=== PATIENT | female | born 1970 | race Caucasian/White ===

== ENCOUNTER → 2016-11-07 | Outpatient (CLI) | payer BC ==
[2016-11-07 13:27] LABS: Basophils # (A) 0.1 k/uL (0-0.2); Basophils % (A) 1 %; CH 30.5; CHCM 32.3; Eosinophils # (A) 0.1 k/uL (0-0.7); Eosinophils % (A) 1 %; HCT 38.8 % (34.0-46.0); HDW 2.61; HGB 12.6 gm/dL (11.4-16.0); Luc # (Auto) 0.13; Luc % (Auto) 2; Lymphocytes # (A) 2.2 k/uL (1.0-4.8); Lymphocytes % (A) 27 %; MCH 30.9 pg (25.0-35.0); MCHC 32.5 g/dL (31.0-37.0); MCV 95.1 fL (80.0-100.0); Mean Platelet Volume 8.1; Monocytes # (A) 0.4 k/uL (0-1.0); Monocytes % (A) 5 %; Neutrophils # (A) 5.2 k/uL (1.3-7.7); Neutrophils % (A) 65 %; RBC 4.08 m/uL (3.80-5.40); RDW 13.9 % (11.5-15.5); WBC (Perox) 8.76
[2016-11-07 13:45] LABS: ALT 30 U/L (9-52); AST 19 U/L (14-36); Alkaline Phosphatase 115 U/L (38-126); Anion Gap 13 mmol/L; Blood Urea Nitrogen 20 mg/dL (7-17); Calcium 9.6 mg/dL (8.4-10.2); Carbon Dioxide 21 mmol/L (22-30); Chloride 105 mmol/L (98-107); Glucose 89 mg/dL (74-99); Non-African American GFR(MDRD) >60 (>60 ml/min/1.73 sqM); Potassium 4.2 mmol/L (3.5-5.1); Sodium 139 mmol/L (137-145); Total Bilirubin 0.4 mg/dL (0.2-1.3); Total Protein 7.5 g/dL (6.3-8.2)
== END | disposition home or self-care (01) ==
LOC: LABWHC1 12:44
PROVIDERS: ATTEND Psychiatry & Neurology Neurology
DX: T42.8X5D Adverse effect of antiparkinsonism drugs and other central muscle-tone depressants, subsequent encounter (principal)
CPT/HCPCS: 36415; 80053; 85025

== ENCOUNTER → 2017-01-25 | Outpatient (CLI) | payer BC ==
--- NOTE | 2017-01-25 11:19 | PN ---
DATE OF SERVICE: 01/25/2017 This is a 46-year-old lady who has been followed in the sleep center for treatment of severe obstructive sleep apnea-hypopnea syndrome. Patient continued to use her CPAP equipment without any problems. I checked her CPAP unit. Usage is 100% more than 4 hours per night. No leak from the mask. Apnea-hypopnea index is 0.7, CPAP 10 cm of water. No snoring with the machine. No sleepiness during the day. [place] Sleepiness Scale is 4. MEDICATIONS: Neurontin, Zestril, Topamax, Flexeril, Celexa, Xanax, ( ). During physical exam, the patient in no distress. VITAL SIGNS: BP 122/74, HR 94, RR 16. Height 5 feet 4-1/2 inches. Weight 299. Patient lost about 11 pounds since the previous visit and about 28 pounds sinus 2-year-ago visit. BMI 50.5. Neck 16-14. Temperature 97.7, oxygen saturation at room air 97%. HEENT: PERRLA, EOMI, Evaluation of the oropharynx showed moderately low position of soft palate. NECK: Supple. No JVD, Thyroid is not palpable. LUNGS: Clear to percussion and to auscultation. Good air exchange. No wheezing or rhonchi. HEART: S1, S2 regular. No murmurs, gallops, or rubs. ABDOMEN: Obese. PHARMACEUTICAL SALES REPRESENTATIVE: Awake, alert, and oriented x3. Cranial nerves 2 to 7 intact. There is no fasciculation or atrophy noted. No focal deficits observed. IMPRESSION: 1. Severe obstructive sleep apnea-hypopnea syndrome on full control with CPAP at 10 cm of water. Patient demonstrated 100% compliance with treatment benefiting with treatment. 2. Obesity. 3. Status post bilateral knee surgery. 4. Hypertension. 5. History of panic attacks. 6. History of seizures many years ago. PLAN: 1. Prescription for all necessary CPAP supplies. 2. Continue losing weight. 3. Continue to use CPAP equipment every night for the whole night. 4. Sleep hygiene with regular time in bed for at least 8 hours. 5. Follow-up visit in one year. Thank you very much for allowing me to participate in the management of your patient. Sincerely, Ace Jenkins MD, PhD, FAASM Diplomat of [place] [employer], Sleep Medicine Board by [place] [employer] [place] [employer] Greeter [employer] [facility] [place]
== END | disposition home or self-care (01) ==
LOC: SLEEP 10:00
PROVIDERS: ATTEND Internal Medicine
DX: G47.33 Obstructive sleep apnea (adult) (pediatric) (principal); E66.9 Obesity, unspecified; Z68.43 Body mass index [BMI] 50.0-59.9, adult; I10 Essential (primary) hypertension; F41.0 Panic disorder [episodic paroxysmal anxiety]; R56.9 Unspecified convulsions; Z79.899 Other long term (current) drug therapy

== ENCOUNTER → 2017-01-25 | Outpatient (CLI) | payer BC ==
--- NOTE | 2017-01-29 08:18 | MM ---
Reason for exam: screening (asymptomatic). Last mammogram was performed 1 year and 2 months ago. History: Family history of breast cancer in maternal aunt. Physical Findings: A clinical breast exam by your physician is recommended on an annual basis and results should be correlated with mammographic findings. MG Screening Mammo w CAD Bilateral CC and MLO view(s) were taken. XCCL view(s) were taken of the right breast. Prior study comparison: December 11, 2015, bilateral MG screening mammo w CAD. There are scattered fibroglandular densities. No significant changes when compared with prior studies. ASSESSMENT: Benign, BI-RAD 2 RECOMMENDATION: Routine screening mammogram of both breasts in 1 year.
== END | disposition home or self-care (01) ==
LOC: RADMAMWWP 12:38
PROVIDERS: ATTEND Family Medicine
DX: Z12.31 Encounter for screening mammogram for malignant neoplasm of breast (principal)

== ENCOUNTER → 2017-11-05 | Outpatient (CLI) | payer OTHER ==
[2017-11-08 10:43] LABS: Topiramate 3.3 ug/mL (2.0-20.0)
== END | disposition home or self-care (01) ==
LOC: LABWHC1 07:11
PROVIDERS: ATTEND Psychiatry & Neurology Neurology
DX: G40.009 Localization-related (focal) (partial) idiopathic epilepsy and epileptic syndromes with seizures of localized onset, not intractable, without status epilepticus (principal)
CPT/HCPCS: 36415; 80171; 80201

== ENCOUNTER → 2018-01-31 | Outpatient (CLI) | payer OTHER ==
--- NOTE | 2018-01-31 15:01 | SFUN ---
SLEEP CENTER FOLLOW UP NOTE DATE OF SERVICE: 01/31/2018 A 47-year-old lady who has been followed in the Sleep Center for treatment of obstructive sleep apnea-hypopnea syndrome in severe range. Patient continued to use her CPAP equipment every night for the whole night without problems. No snoring with the machine. She irregularly getting her CPAP supplies. I checked her CPAP unit, usage is 100% of the time more than 4 hours. Average usage is 6.36 hours. Apnea-hypopnea index only 1.2 per hour, which is perfect. No leak at all. CPAP pressure is 10 cm of water. [place] Sleepiness Scale today is 6. MEDICATIONS: Neurontin, Zestril, Topamax, Xanax, , Celexa, Prilosec, Percocet, Nitrostat, Bactroban. Blood pressure 127/76, HR 78, RR 16, height 5, 4, weight 312, BMI 53.5. Patient increased her weight comparing to the previous visit of 13 pounds, temp 97.9, oxygen saturation at room air 97%. Moderately low position of soft palate. ABDOMEN: Obese. Neck Supple, no JVD. Thyroid is not palpable. LUNGS Clear to percussion and to auscultation. Good air exchange. No wheezing or rhonchi. HEART S1, S2 regular. No murmurs, gallops, or rubs. EXTREMITIES No clubbing or cyanosis. POWER TONG OPERATOR Awake, alert, and oriented X3. Cranial nerves 2 to 7 intact. There is no fasciculation or atrophy. noted. No focal deficits observed. IMPRESSION: 1. Severe obstructive sleep apnea-hypopnea syndrome on full control with CPAP at 10 cm of water, patient demonstrated 100% compliance with treatment, benefitting from treatment. 2. Obesity, body mass index of 53.5. 3. Hypertension. 4. Status post bilateral knee surgery. 5. History of episodes of panic attack. 6. History of seizures many years ago. PLAN: 1. Patient will continue to use her CPAP equipment every night for the whole night. 2. Watching and losing weight. 3. Sleep hygiene with regular time in bed for at least 8 hours. 4. No driving if feeling any sleepiness. 5. Prescription for all necessary CPAP supplies including mask, tube, filters. 6. Followup visit in 1 year or earlier if patient has any problems. Thank you very much for allowing me to participate in the management of your patient. Sincerely, Ace Jenkins MD, PhD, FAASM Diplomat of [place] [employer] [place] [employer] Lead In[employer] M[employer] of [facility] [place] ROEL / JUAN C: [id number] /
== END | disposition home or self-care (01) ==
LOC: SLEEP 13:15
PROVIDERS: ATTEND Internal Medicine
DX: G47.33 Obstructive sleep apnea (adult) (pediatric) (principal); E66.9 Obesity, unspecified; I10 Essential (primary) hypertension; Z68.43 Body mass index [BMI] 50.0-59.9, adult; Z98.890 Other specified postprocedural states; Z99.89 Dependence on other enabling machines and devices; Z79.899 Other long term (current) drug therapy; Z79.891 Long term (current) use of opiate analgesic

== ENCOUNTER → 2018-03-08 | Outpatient (CLI) | payer OTHER ==
--- NOTE | 2018-03-11 11:03 | MM ---
Reason for exam: screening (asymptomatic). Last mammogram was performed 1 year and 1 month ago. History: Family history of breast cancer in maternal aunt. Physical Findings: A clinical breast exam by your physician is recommended on an annual basis and results should be correlated with mammographic findings. MG 3D Screening Mammo W/Cad Bilateral CC and MLO view(s) were taken. Prior study comparison: January 25, 2017, bilateral MG screening mammo w CAD. December 11, 2015, bilateral MG screening mammo w CAD. There are scattered fibroglandular densities. No significant changes when compared with prior studies. ASSESSMENT: Benign, BI-RAD 2 RECOMMENDATION: Routine screening mammogram of both breasts in 1 year.
== END | disposition home or self-care (01) ==
LOC: RADMAMWWP 13:16
PROVIDERS: ATTEND Family Medicine
DX: Z12.31 Encounter for screening mammogram for malignant neoplasm of breast (principal)
CPT/HCPCS: 77063; 77067

== ENCOUNTER 2018-03-25 08:10 | Day surgery (SDC) | payer OTHER ==
[2018-03-21 12:35] VITALS: BMI 53.7
--- NOTE | 2018-03-24 21:42 | P.GSHP ---
History of Present Illness H&P Date: 03/25/18 CHIEF COMPLAINT: Colon screen HISTORY OF PRESENT ILLNESS: The patient is a 47-year-old female who presents for colon screen. Lower endoscopy was offered for further evaluation and management. PAST MEDICAL HISTORY: Please see list. PAST SURGICAL HISTORY: Please see list. MEDICATIONS: Please see list. ALLERGIES: Please see list. SOCIAL HISTORY: No illicit drug use FAMILY HISTORY: No reports of Crohn disease or ulcerative colitis. REVIEW OF ORGAN SYSTEMS: CONSTITUTIONAL: No reports of fevers or chills. PHYSICAL EXAM: VITAL SIGNS: Stable GENERAL: Well-developed pleasant in no acute distress. HEENT: No scleral icterus. Extraocular movements grossly intact. Moist buccal mucosa. NECK: Supple without lymphadenopathy. CHEST: Unlabored respirations. Equal bilateral excursions. CARDIOVASCULAR: Regular rate and rhythm. Distal 2+ pulses. ABDOMEN: Soft, nontender, nondistended. MUSCULOSKELETAL: No clubbing, cyanosis, or edema. ASSESSMENT: 1. Colon screen. PLAN: 1. Recommend proceeding with a lower endoscopy Past Medical History Past Medical History: GERD/Reflux, Hypertension, Osteoarthritis (OA), Seizure Disorder, Skin Disorder, Sleep Apnea/CPAP/BIPAP Additional Past Medical History / Comment(s): LAST SEIZURE JUN 2016., MIGRAINES , CPAP MACHINE, PAIN IN KNEES AND BACK., HEART MURMUR, HX GASTRIC ULCER., STATES ANEMIC. History of Any Multi-Drug Resistant Organisms: None Reported Past Surgical History: Section, Cholecystectomy, Orthopedic Surgery, Tonsillectomy, Tubal Ligation Additional Past Surgical History / Comment(s): ARTHROSCOPIC ANGIE KNEES, ANGIE ROTATOR CUFF Past Anesthesia/Blood Transfusion Reactions: No Reported Reaction, Motion Sickness Past Psychological History: Anxiety, Panic Disorder Additional Psychological History / Comment(s): . Smoking Status: Never smoker Past Alcohol Use History: None Reported Past Drug Use History: None Reported - Past Family History Mother Family Medical History: Hypertension Father Family Medical History: Coronary Artery Disease (CAD), Myocardial Infarction ([place] ) Additional Family Medical History / Comment(s): CABG-3 VESSEL, FATHER HAD [place] AFTER THE AGE OF 60 YRS. Medications and Allergies Home Medications Medication Instructions Recorded Confirmed Type ALPRAZolam [Xanax] 0.5 mg PO BID PRN 11/17/14 03/21/18 History Gabapentin [Neurontin] 1,600 mg PO BID 11/17/14 03/21/18 History Baclofen 10 mg PO BID 08/23/17 03/21/18 History Butalb/Acetaminophen/Caffeine 1 tab PO Q8H PRN 08/23/17 03/21/18 History [Esgic 50-325-40 mg Tablet] Citalopram Hydrobromide [CeleXA] 40 mg PO HS 08/23/17 03/21/18 History Topiramate [Topamax] 50 mg PO BID 08/23/17 03/21/18 History Metoprolol Tartrate [Lopressor] 25 mg PO BID #60 tab 08/24/17 03/21/18 Rx Nitroglycerin Sl Tabs [Nitrostat] 0.4 mg SUBLINGUAL Q5M PRN #25 tab 08/24/1708/27 Rx Ferrous Sulfate [Iron] 325 mg PO DAILY 03/21/18 03/21/18 History Lisinopril [Zestril] 10 mg PO DAILY 03/21/18 03/21/18 History Multivitamins, Thera [Multivitamin 1 tab PO DAILY 03/21/18 03/21/18 History (formulary)] Mupirocin 2% Nasal Oint [Bactroban 1 applic NASAL DAILY 03/21/18 03/21/18 History 2% Nasal Oint] Omeprazole [PriLOSEC] 20 mg PO DAILY@1700 03/21/18 03/21/18 History diphenhydrAMINE HCL [Benadryl] 50 mg PO HS PRN 03/21/18 03/21/18 History oxyCODONE-APAP 5-325MG [Percocet 1 tab PO Q6HR PRN 03/21/18 03/21/18 History 5-325 mg] Allergies Allergy/AdvReac Type Severity Reaction Status Date / Time adhesive Allergy SKIN Verified 03/21/18 12:15 BLISTERS AND PEELS levetiracetam [From Keppra] Allergy PANIC Verified 03/21/18 12:15 ATTACKS, HIVES phenytoin sodium Allergy Rash/Hives Verified 03/21/18 12:15 [From Dilantin] phenytoin sodium extended Allergy Rash/Hives Verified 03/21/18 12:15 [From Dilantin] Sulfa (Sulfonamide Allergy Nausea & Verified 03/21/18 12:15 Antibiotics) Vomiting sumatriptan [From Imitrex] AdvReac Unknown worsening Verified 03/21/18 12:15 migraine morphine AdvReac Nausea & Verified 03/21/18 12:15 Vomiting
[~2018-03-25 08:10] MED LIST: LACTATED RINGERS 1,000 ML IV SCH; LIDOCAINE 1% 20 ML VIAL (10MG/ML) FOR IV START INTRADERMA PRN
[2018-03-25 08:50] VITALS: RESP 18; TEMP 98.5
[2018-03-25] MEDS ORDERED: PROPOFOL 10 MG/ML 20 ML VIAL IV ONE (09:23)
[2018-03-25] MEDS ORDERED: LIDOCAINE 1% INJ 10MG/ML (20 ML MDV) ONE (09:23)
--- NOTE | 2018-03-25 09:43 | P.PCN ---
Date of Procedure: 03/25/18 Description of Procedure: PREOPERATIVE DIAGNOSIS: Colonoscopy screening. Positive fecal blood test. POSTOPERATIVE DIAGNOSIS: Colonoscopy screening. Positive fecal blood test. Diverticulosis, scattered. OPERATION: Colonoscopy to the ileocecal valve and appendiceal orifice. SURGEON: Dona Pena MD. ANESTHESIA: MAC. INDICATIONS: The patient is a 47-year-old female who presents for colonoscopy screening. Benefits and risks were described and informed consent was obtained. DESCRIPTION OF PROCEDURE: The patient had undergone Gatorade, MiraLAX and Dulcolax prep. She had been brought into the operating room and laid in the left lateral decubitus position. After adequate intravenous sedation, the rectum was examined with 2% lidocaine jelly. No external hemorrhoids were encountered. The rectal tone was within normal limits. No lesions were palpated in the rectal vault. An Olympus colonoscope was advanced until the ileocecal valve and appendiceal orifice were clearly viewed. The prep was excellent with clear visualization of the mucosal folds. The scope was removed with visualization of each mucosal fold. Scattered diverticulosis was encountered. No colonic polyps were found. No evidence of focal colitis was found. Retroflexion of the scope demonstrated no internal hemorrhoids without active bleeding or inflammation. The colon was desufflated. The patient had tolerated the procedure well. Withdrawal time was over 6 minutes. FINDINGS: No internal hemorrhoids No external prolapsed hemorrhoids. No arteriovenous malformations. No adenomatous polyps. No focal colitis. RECOMMENDATIONS: Lower endoscopy in 5 years per screening guidelines, 2022. Plan - Discharge Summary New Discharge Prescriptions: No Action ALPRAZolam [Xanax] 0.5 mg PO BID PRN PRN Reason: panic attacks Gabapentin [Neurontin] 1,600 mg PO BID Topiramate [Topamax] 50 mg PO BID Butalb/Acetaminophen/Caffeine [Esgic 50-325-40 mg Tablet] 1 tab PO Q8H PRN PRN Reason: Migraine Headache Citalopram Hydrobromide [CeleXA] 40 mg PO HS Baclofen 10 mg PO BID Metoprolol Tartrate [Lopressor] 25 mg PO BID #60 tab Nitroglycerin Sl Tabs [Nitrostat] 0.4 mg SUBLINGUAL Q5M PRN #25 tab PRN Reason: Chest Pain Lisinopril [Zestril] 10 mg PO DAILY Omeprazole [PriLOSEC] 20 mg PO DAILY@1700 diphenhydrAMINE HCL [Benadryl] 50 mg PO HS PRN PRN Reason: Insomnia oxyCODONE-APAP 5-325MG [Percocet 5-325 mg] 1 tab PO Q6HR PRN PRN Reason: Pain Multivitamins, Thera [Multivitamin (formulary)] 1 tab PO DAILY Mupirocin 2% Nasal Oint [Bactroban 2% Nasal Oint] 1 applic NASAL DAILY Ferrous Sulfate [Iron] 325 mg PO DAILY Discharge Medication List ALPRAZolam [Xanax] 0.5 mg PO BID PRN 11/17/14 [History] Gabapentin [Neurontin] 1,600 mg PO BID 11/17/14 [History] Baclofen 10 mg PO BID 08/23/17 [History] Butalb/Acetaminophen/Caffeine [Esgic 50-325-40 mg Tablet] 1 tab PO Q8H PRN 08/23 [History] Citalopram Hydrobromide [CeleXA] 40 mg PO HS 08/23/17 [History] Topiramate [Topamax] 50 mg PO BID 08/23/17 [History] Metoprolol Tartrate [Lopressor] 25 mg PO BID #60 tab 08/24/17 [Rx] Nitroglycerin Sl Tabs [Nitrostat] 0.4 mg SUBLINGUAL Q5M PRN #25 tab 08/24/17 [Rx ] Ferrous Sulfate [Iron] 325 mg PO DAILY 03/21/18 [History] Lisinopril [Zestril] 10 mg PO DAILY 03/21/18 [History] Multivitamins, Thera [Multivitamin (formulary)] 1 tab PO DAILY 03/21/18 [History ] Mupirocin 2% Nasal Oint [Bactroban 2% Nasal Oint] 1 applic NASAL DAILY 03/21/18 [History] Omeprazole [PriLOSEC] 20 mg PO DAILY@1700 03/21/18 [History] diphenhydrAMINE HCL [Benadryl] 50 mg PO HS PRN 03/21/18 [History] oxyCODONE-APAP 5-325MG [Percocet 5-325 mg] 1 tab PO Q6HR PRN 03/21/18 [History]
[2018-03-25 09:57] VITALS: BP 113/72; PULSE 71
== END 2018-03-25 10:31 | disposition home or self-care (01) ==
LOC: ORWHC2ENDO 08:10
PROVIDERS: ATTEND Surgery Plastic and Reconstructive Surgery
DX: Z12.11 Encounter for screening for malignant neoplasm of colon (principal); K57.30 Diverticulosis of large intestine without perforation or abscess without bleeding; K21.9 Gastro-esophageal reflux disease without esophagitis; I10 Essential (primary) hypertension; M19.90 Unspecified osteoarthritis, unspecified site; G40.909 Epilepsy, unspecified, not intractable, without status epilepticus; G47.33 Obstructive sleep apnea (adult) (pediatric); Z99.89 Dependence on other enabling machines and devices; R01.1 Cardiac murmur, unspecified; F41.9 Anxiety disorder, unspecified; F41.0 Panic disorder [episodic paroxysmal anxiety]; G43.909 Migraine, unspecified, not intractable, without status migrainosus; Z79.899 Other long term (current) drug therapy; Z88.5 Allergy status to narcotic agent; Z88.2 Allergy status to sulfonamides; Z88.8 Allergy status to other drugs, medicaments and biological substances; Z91.09 Other allergy status, other than to drugs and biological substances
CPT/HCPCS: 81025; J2001; J2704; G0121; 45378

== ENCOUNTER → 2018-08-22 | Outpatient (CLI) | payer OTHER ==
--- NOTE | 2018-08-22 12:11 | P.HPBAR ---
Bariatric H&P - History & Physicial H&P Date: 08/22/18 History & Physicial: Visit/CC: Patient initial contact: Initial weight: Initial weight in pounds: Height: Initial BMI: Last weight: Current weight: Current weight in pounds: Current BMI: [place] body weight (based on NIH guidelines): Excess body weight loss: The patient is a 47 year-old F who presents for Bariatric Assessment. HPI: She is looking into the sleeve. She has past GERD. No esophageal or stomach cancer in family. Family history of obesity. Insurance requirements reviewed. She has left knee severe arthritis. Highest weight is 333 pounds. She has tried things on her own including carbohydrate including prescriptions and medical supervised weight loss. The most she lost was 67 pounds. She is in her 2 month. She is a pain patient. No past tobbaco.DVTs in family for her grandmother. Gallbladder is removed. No diarrhea or constipation. PLAN: 1. MBS reveiwed for all procedures 2. She is seeking sleeve Past Medical History Past Medical History: GERD/Reflux, Hypertension, Osteoarthritis (OA), Seizure Disorder, Skin Disorder, Sleep Apnea/CPAP/BIPAP Additional Past Medical History / Comment(s): LAST SEIZURE JUN 2016., MIGRAINES , CPAP MACHINE, PAIN IN KNEES AND BACK., HEART MURMUR, HX GASTRIC ULCER., STATES ANEMIC. History of Any Multi-Drug Resistant Organisms: None Reported Past Surgical History: Section, Cholecystectomy, Orthopedic Surgery, Tonsillectomy, Tubal Ligation Additional Past Surgical History / Comment(s): ARTHROSCOPIC ANGIE KNEES, ANGIE ROTATOR CUFF Past Anesthesia/Blood Transfusion Reactions: No Reported Reaction, Motion Sickness Past Psychological History: Anxiety, Panic Disorder Additional Psychological History / Comment(s): . Smoking Status: Never smoker Past Alcohol Use History: None Reported Past Drug Use History: None Reported - Past Family History Mother Family Medical History: Hypertension Father Family Medical History: Coronary Artery Disease (CAD), Myocardial Infarction ([place] ) Additional Family Medical History / Comment(s): CABG-3 VESSEL, FATHER HAD [place] AFTER THE AGE OF 60 YRS. Bariatric Checklist Checklist: Plan: Checklist: EGD: 1. Hiatal hernia: 2. H. Pylori: HgbA1c: Vitamin D: Smoking: Never smoker Primary care physician referral: Psychiatry clearance: Cardiology clearance: Sleep study: Diet journal: VTE risk score: VTE risk level: Rehab needs at discharge:
[2018-08-22 14:11] LABS: HCT 42.6 % (34.0-46.0); HGB 13.8 gm/dL (11.4-16.0); Hypochromasia Slight; MCH 30.8 pg (25.0-35.0); MCHC 32.4 g/dL (31.0-37.0); Mean Platelet Volume 7.8; Platelet Count 246 k/uL (150-450); RBC 4.48 m/uL (3.80-5.40); RDW 13.8 % (11.5-15.5); WBC 8.3 k/uL (3.8-10.6)
[2018-08-22 14:32] VITALS: BP 117/78; PULSE 79; TEMP 97.9; BMI 51.5
[2018-08-22 18:46] LABS: Albumin 4.5 g/dL (3.80-4.90); Albumin/Globulin Ratio 2.05 (1.20-2.10); Anion Gap 8.7 mmol/L (4.00-12.00); Calcium 9.5 mg/dL (8.7-10.3); Carbon Dioxide 21.3 mmol/L (21.6-31.8); Globulin 2.2 g/dL (2.1-3.7); LDL Cholesterol,Calculated 71.8 mg/dL (0.0-131.0); Total Bilirubin 0.3 mg/dL (0.3-1.2); Total Protein 6.7 g/dL (6.2-8.2); VLDL Calculation 29.2 mg/dL (5.00-40.00)
[2018-08-22 19:01] LABS: Vitamin D 25 Hydroxy 32.3 ng/mL (30.0-100.0)
[2018-08-22 20:01] LABS: Hemoglobin A1C 5.3 % (4.0-6.0)
[2018-08-22 21:26] LABS: Folate, Serum >24.0 ng/mL
== END | disposition home or self-care (01) ==
LOC: BARWHC3 10:51
PROVIDERS: ATTEND Surgery Plastic and Reconstructive Surgery
DX: E66.01 Morbid (severe) obesity due to excess calories (principal); M17.12 Unilateral primary osteoarthritis, left knee; F41.9 Anxiety disorder, unspecified; E88.81 Metabolic syndrome and other insulin resistance; E44.0 Moderate protein-calorie malnutrition; E55.9 Vitamin D deficiency, unspecified; I11.9 Hypertensive heart disease without heart failure; G47.30 Sleep apnea, unspecified; K21.9 Gastro-esophageal reflux disease without esophagitis; Z68.43 Body mass index [BMI] 50.0-59.9, adult; Z90.49 Acquired absence of other specified parts of digestive tract; Z90.89 Acquired absence of other organs; Z98.890 Other specified postprocedural states
CPT/HCPCS: 84425; 80061; 80053; 82607; 82728; 82746; 83540; 83550; 84443; 85027; 82306; 83036; 93005; 36415; G0463; 99211

== ENCOUNTER 2018-10-21 10:12 | Day surgery (SDC) | payer OTHER ==
[2018-10-17 14:41] VITALS: BMI 48.6
--- NOTE | 2018-10-21 06:26 | P.GSHP ---
History of Present Illness H&P Date: 10/21/18 CHIEF COMPLAINT: GERD HISTORY OF PRESENT ILLNESS: The patient is a 48-year-old female who presents reports gastroesophageal reflux disease. Upper endoscopy was offered for further evaluation and management. PAST MEDICAL HISTORY: Please see list. PAST SURGICAL HISTORY: Please see list. MEDICATIONS: Please see list. ALLERGIES: Please see list. SOCIAL HISTORY: No illicit drug use FAMILY HISTORY: No reports of Crohn disease or ulcerative colitis. REVIEW OF ORGAN SYSTEMS: CONSTITUTIONAL: No reports of fevers or chills. GI: Denies any blood in stools or constipation. PHYSICAL EXAM: VITAL SIGNS: Stable GENERAL: Well-developed and pleasant in no acute distress. HEENT: No scleral icterus. Extraocular movements grossly intact. Moist buccal mucosa. NECK: Supple without lymphadenopathy. CHEST: Unlabored respirations. Equal bilateral excursions. CARDIOVASCULAR: Regular rate and rhythm. Distal 2+ pulses. ABDOMEN: Soft, nondistended. MUSCULOSKELETAL: No clubbing, cyanosis, or edema. ASSESSMENT: 1. Gastroesophageal reflux disease PLAN: 1. Recommend proceeding with an upper endoscopy Past Medical History Past Medical History: GERD/Reflux, Hypertension, Osteoarthritis (OA), Seizure Disorder, Skin Disorder, Sleep Apnea/CPAP/BIPAP Additional Past Medical History / Comment(s): LAST SEIZURE JUN 2016., MIGRAINES , CPAP MACHINE, PAIN IN KNEES AND BACK., HEART MURMUR, HX GASTRIC ULCER., STATES ANEMIC. States heartburn resolved, History of Any Multi-Drug Resistant Organisms: None Reported Past Surgical History: Section, Cholecystectomy, Orthopedic Surgery, Tonsillectomy, Tubal Ligation Additional Past Surgical History / Comment(s): ARTHROSCOPIC ANGIE KNEES, ANGIE ROTATOR CUFF Past Anesthesia/Blood Transfusion Reactions: Motion Sickness Smoking Status: Never smoker - Past Family History Mother Family Medical History: Hypertension Father Family Medical History: Coronary Artery Disease (CAD), Myocardial Infarction ([place] ) Additional Family Medical History / Comment(s): CABG-3 VESSEL, FATHER HAD [place] AFTER THE AGE OF 60 YRS. Medications and Allergies Home Medications Medication Instructions Recorded Confirmed Type ALPRAZolam [Xanax] 0.5 mg PO BID PRN 11/17/14 10/17/18 History Gabapentin [Neurontin] 1,600 mg PO BID 11/17/14 10/17/18 History Baclofen 10 mg PO BID 08/23/17 10/17/18 History Butalb/Acetaminophen/Caffeine 1 tab PO Q8H PRN 08/23/17 10/17/18 History [Esgic 50-325-40 mg Tablet] Citalopram Hydrobromide [CeleXA] 40 mg PO HS 08/23/17 10/17/18 History Topiramate [Topamax] 50 mg PO BID 08/23/17 10/17/18 History Metoprolol Tartrate [Lopressor] 25 mg PO BID #60 tab 08/24/17 10/17/18 Rx Nitroglycerin Sl Tabs [Nitrostat] 0.4 mg SUBLINGUAL Q5M PRN #25 tab 08/24/1703/28 Rx Lisinopril [Zestril] 10 mg PO DAILY 03/21/18 10/17/18 History Multivitamins, Thera [Multivitamin 1 tab PO DAILY 03/21/18 10/17/18 History (formulary)] Mupirocin 2% Nasal Oint [Bactroban 1 applic NASAL DAILY 03/21/18 10/17/18 History 2% Nasal Oint] diphenhydrAMINE HCL [Benadryl] 50 mg PO HS PRN 03/21/18 10/17/18 History oxyCODONE-APAP 5-325MG [Percocet 1 tab PO Q6HR PRN 03/21/18 10/17/18 History 5-325 mg] Allergies Allergy/AdvReac Type Severity Reaction Status Date / Time adhesive Allergy SKIN Verified 10/17/18 14:13 BLISTERS AND PEELS levetiracetam [From Keppra] Allergy PANIC Verified 10/17/18 14:13 ATTACKS, HIVES phenytoin sodium Allergy Rash/Hives Verified 10/17/18 14:13 [From Dilantin] phenytoin sodium extended Allergy Rash/Hives Verified 10/17/18 14:13 [From Dilantin] Sulfa (Sulfonamide Allergy Nausea & Verified 10/17/18 14:13 Antibiotics) Vomiting sumatriptan [From Imitrex] AdvReac Unknown worsening Verified 10/17/18 14:13 migraine morphine AdvReac Nausea & Verified 10/17/18 14:13 Vomiting oranges Allergy Rash/Hives Uncoded 10/17/18 14:14
[2018-10-21 10:36] VITALS: TEMP 97.8
[2018-10-21] MEDS ORDERED: LIDOCAINE 1% INJ 10MG/ML (20 ML MDV) ONE (12:22)
[2018-10-21] MEDS ORDERED: KETAMINE 10 MG/ML 20 ML VIAL ONE (12:22)
[2018-10-21] MEDS ORDERED: PROPOFOL 10 MG/ML 20 ML VIAL IV ONE (12:22)
--- NOTE | 2018-10-21 12:38 | P.PCN ---
Date of Procedure: 10/21/18 Description of Procedure: PREOPERATIVE DIAGNOSIS: Gastroesophageal reflux disease. Morbid obesity. POSTOPERATIVE DIAGNOSIS: Morbid obesity. Gastritis with recent bleed Gastric ulcer at antrum Gastroesophageal reflux disease. Diaphragmatic hiatal hernia OPERATION: Esophagogastroduodenoscopy with biopsies along antrum. SURGEON: Dona Pena MD ANESTHESIA: MAC. INDICATIONS: The patient is a 48-year-old female who presents with a history of reflux disease. Benefits and risks of the procedure were described. Informed consent was obtained. DESCRIPTION: The patient was brought into the endoscopy suite and laid in the left lateral decubitus position. An Olympus gastroscope was passed along the posterior oropharynx down to the distal esophagus where the squamocolumnar junction was encountered at 38 cm from the incisors. The stomach was entered and no bile reflux was found. Additional findings are listed below. Biopsies with cold forceps were obtained of the antrum. The first through third portion of the duodenum was examined and unremarkable. Retroflexion of the scope confirmed Hill grade 2 lower esophageal valve. The squamocolumnar junction demonstrated [place] grade A erosive esophagitis. The stomach was desufflated. The patient tolerated the procedure well. FINDINGS: Squamocolumnar junction 38 cm from the incisors. Diaphragmatic hiatus at 38 cm. Hill grade 2 lower esophageal valve. [place] grade A erosive esophagitis. No active duodenitis. Gastric ulcer at antrum, superficial, chronic and shallow of 4 mm Chronic gastritis with recent bleed RECOMMENDATIONS: Upper endoscopy as needed. Plan - Discharge Summary Discharge Rx Participant: Yes New Discharge Prescriptions: New Omeprazole 40 mg PO DAILY #30 capsule. No Action ALPRAZolam [Xanax] 0.5 mg PO BID PRN PRN Reason: panic attacks Gabapentin [Neurontin] 1,600 mg PO BID Topiramate [Topamax] 50 mg PO BID Butalb/Acetaminophen/Caffeine [Esgic 50-325-40 mg Tablet] 1 tab PO Q8H PRN PRN Reason: Migraine Headache Citalopram Hydrobromide [CeleXA] 40 mg PO HS Baclofen 10 mg PO BID Metoprolol Tartrate [Lopressor] 25 mg PO BID #60 tab Nitroglycerin Sl Tabs [Nitrostat] 0.4 mg SUBLINGUAL Q5M PRN #25 tab PRN Reason: Chest Pain Lisinopril [Zestril] 10 mg PO DAILY diphenhydrAMINE HCL [Benadryl] 50 mg PO HS PRN PRN Reason: Insomnia oxyCODONE-APAP 5-325MG [Percocet 5-325 mg] 1 tab PO Q6HR PRN PRN Reason: Pain Multivitamins, Thera [Multivitamin (formulary)] 1 tab PO DAILY Mupirocin 2% Nasal Oint [Bactroban 2% Nasal Oint] 1 applic NASAL DAILY Discharge Medication List ALPRAZolam [Xanax] 0.5 mg PO BID PRN 11/17/14 [History] Gabapentin [Neurontin] 1,600 mg PO BID 11/17/14 [History] Baclofen 10 mg PO BID 08/23/17 [History] Butalb/Acetaminophen/Caffeine [Esgic 50-325-40 mg Tablet] 1 tab PO Q8H PRN 08/23 [History] Citalopram Hydrobromide [CeleXA] 40 mg PO HS 08/23/17 [History] Topiramate [Topamax] 50 mg PO BID 08/23/17 [History] Metoprolol Tartrate [Lopressor] 25 mg PO BID #60 tab 08/24/17 [Rx] Nitroglycerin Sl Tabs [Nitrostat] 0.4 mg SUBLINGUAL Q5M PRN #25 tab 08/24/17 [Rx ] Lisinopril [Zestril] 10 mg PO DAILY 03/21/18 [History] Multivitamins, Thera [Multivitamin (formulary)] 1 tab PO DAILY 03/21/18 [History ] Mupirocin 2% Nasal Oint [Bactroban 2% Nasal Oint] 1 applic NASAL DAILY 03/21/18 [History] diphenhydrAMINE HCL [Benadryl] 50 mg PO HS PRN 03/21/18 [History] oxyCODONE-APAP 5-325MG [Percocet 5-325 mg] 1 tab PO Q6HR PRN 03/21/18 [History] Omeprazole 40 mg PO DAILY #30 capsule. 10/21/18 [Rx] Follow up Appointment(s)/Referral(s): Dona Pena MD [STAFF PHYSICIAN] - 11/13/18 Patient Instructions/Handouts: Peptic Ulcer (DC), Gastritis (DC), Diet for Stomach Ulcers and Gastritis (ED) Discharge Disposition: HOME SELF-CARE
[2018-10-21 12:41] VITALS: RESP 17
[2018-10-21 12:51] VITALS: BP 118/75; PULSE 66
== END 2018-10-21 13:23 | disposition home or self-care (01) ==
LOC: ORWHC2ENDO 10:12
PROVIDERS: ATTEND Surgery Plastic and Reconstructive Surgery
DX: K21.0 Gastro-esophageal reflux disease with esophagitis (principal); K29.70 Gastritis, unspecified, without bleeding; K25.9 Gastric ulcer, unspecified as acute or chronic, without hemorrhage or perforation; K31.9 Disease of stomach and duodenum, unspecified; K44.9 Diaphragmatic hernia without obstruction or gangrene; E66.01 Morbid (severe) obesity due to excess calories; G43.909 Migraine, unspecified, not intractable, without status migrainosus; G47.00 Insomnia, unspecified; Z68.42 Body mass index [BMI] 45.0-49.9, adult
CPT/HCPCS: 81025; 88305; 43239; J2001; J2704

== ENCOUNTER → 2018-11-13 | Outpatient (CLI) | payer OTHER ==
[2018-11-13 11:40] VITALS: BP 120/66; PULSE 76; TEMP 98; BMI 49.5
--- NOTE | 2018-11-13 12:23 | P.PN ---
Subjective Progress Note Date: 11/13/18 DATE OF SERVICE: 11/13/2018 CHIEF COMPLAINT: Morbid obesity. HISTORY OF PRESENT ILLNESS: Yi Johnson is a 48-year-old female who initially presented to the bariatric center August 2018, now 3 months ago. She is looking into the sleeve. She is currently undergoing medically supervised weight loss. She has multiple co-morbidities including hypertensive heart disease, sleep apnea, including osteoarthritis. She has completed her upper endoscopy. She also reports gastroesophageal reflux disease. At height of 5 feet 4.5 inches, her ideal body weight is 144 pounds. She comes in 292 pounds from 305 pounds, 3 months ago. She has lost 12 pounds in 3 months. Her highest weight is 333 pounds. Her body mass index highest is 56.4. Today her BMI is 49.5. She is 148 pounds overweight. PAST MEDICAL HISTORY: 1. Morbid obesity due to excess calories 2. Body mass index of 56.4, initial 3. Chronic pain syndrome 4. Gastroesophageal reflux disease 5. Hypertensive heart disease 6. Iron deficiency anemia 7. Depressive disorder 8. Anxiety 9. Seizure disorder 10. Obstructive sleep apnea 11. Heart murmur 12. Gastric ulcer 13. Osteoarthritis bilateral knees 14. Panic disoder PAST SURGICAL HISTORY: 1. Tubal ligation 2. Tonsillectomy 3. Arthroscopy, bilateral knees 4. Bilateral rotator cuff 5. Cholecystectomy 6. section HOME MEDICATIONS: ALLERGIES: Home Medications Medication Instructions Recorded Confirmed Type ALPRAZolam [Xanax] 0.5 mg PO BID PRN 11/17/14 08/22/18 History Gabapentin [Neurontin] 1,600 mg PO BID 11/17/14 08/22/18 History Baclofen 10 mg PO BID 08/23/17 08/22/18 History Butalb/Acetaminophen/Caffeine 1 tab PO Q8H PRN 08/23/17 08/22/18 History [Esgic 50-325-40 mg Tablet] Citalopram Hydrobromide [CeleXA] 40 mg PO HS 08/23/17 08/22/18 History Topiramate [Topamax] 50 mg PO BID 08/23/17 08/22/18 History Metoprolol Tartrate [Lopressor] 25 mg PO BID #60 tab 08/24/17 08/22/18 Rx Nitroglycerin Sl Tabs [Nitrostat] 0.4 mg SUBLINGUAL Q5M PRN #25 tab 08/24/17 08/22/18 Rx Ferrous Sulfate [Iron] 325 mg PO DAILY 03/21/18 08/22/18 History Lisinopril [Zestril] 10 mg PO DAILY 03/21/18 08/22/18 History Multivitamins, Thera [Multivitamin 1 tab PO DAILY 03/21/18 08/22/18 History (formulary)] Mupirocin 2% Nasal Oint [Bactroban 1 applic NASAL DAILY 03/21/18 08/22/18 History 2% Nasal Oint] Omeprazole [PriLOSEC] 20 mg PO DAILY@1700 03/21/18 08/22/18 History diphenhydrAMINE HCL [Benadryl] 50 mg PO HS PRN 03/21/18 08/22/18 History oxyCODONE-APAP 5-325MG [Percocet 1 tab PO Q6HR PRN 03/21/18 08/22/18 History 5-325 mg] Allergies Allergy/AdvReac Type Severity Reaction Status Date / Time adhesive Allergy SKIN Verified 08/22/18 14:36 BLISTERS AND PEELS levetiracetam [From Keppra] Allergy PANIC Verified 08/22/18 14:36 ATTACKS, HIVES phenytoin sodium Allergy Rash/Hives Verified 08/22/18 14:36 [From Dilantin] phenytoin sodium extended Allergy Rash/Hives Verified 08/22/18 14:36 [From Dilantin] Sulfa (Sulfonamide Allergy Nausea & Verified 08/22/18 14:36 Antibiotics) Vomiting sumatriptan [From Imitrex] AdvReac Unknown worsening Verified 08/22/18 14:36 migraine morphine AdvReac Nausea & Verified 08/22/18 14:36 Vomiting SOCIAL HISTORY: Past tobacco use. FAMILY HISTORY: No family history of ulcerative colitis disease or Crohn's disease. Family history of morbid obesity. No lupus in the family. No reports of stomach or esophageal cancer. REVIEW OF ORGAN SYSTEMS: CONSTITUTIONAL: At height of 5 feet 4.5 inches, her ideal body weight is 144 pounds. Her highest weight is 333 pounds. Her body mass index highest is 56.4. HEENT: Denies any active troubles with vision or hearing. No troubles with swallowing. ENDOCRINE: No diabetes. No hypothyroidism. CARDIOVASCULAR: No reports of palpitations or heart attacks or chest pain. RESPIRATORY: Has daytime somnolence. Has asthma. GI: Denies any bright red blood per rectum. No diarrhea. Has constipation. MUSCULOSKELETAL: Has lower back pain and joint pain. Has osteoarthritis of the knees. History of bilateral lower extremity edema. NEURO: No headaches. No seizure disorders. PSYCH: Has depression. No suicidal ideation. RHEUMATOLOGIC: No lupus. No rheumatoid arthritis. HEMATOLOGIC: Denies any abnormal bleeding or bruising. No personal history of DVTs. SKIN: No rash. No skin cancer. PHYSICAL EXAM: VITAL SIGNS: Height 5 foot 4.5 inches, weight 292 pounds. BMI 49.5 GENERAL: Well-developed in no acute distress. HEENT: No scleral icterus. Extraocular movements grossly intact. Hears conversational speech. No nasal drainage. NECK: Supple without lymphadenopathy. CHEST: Nonlabored respirations with equal bilateral excursions. CARDIOVASCULAR: Regular rate and regular rhythm. Distal 2+ pulses. ABDOMEN: Obese, soft, nontender, nondistended. MUSCULOSKELETAL: No clubbing, cyanosis. Gross strength 5/5 distal lower extremities. NEURO: No focal or lateralizing signs. Cranial nerves 2 through 12 grossly within normal limits. PSYCH: Appropriate affect. Alert and oriented to person, place and time. SKIN: Good skin turgor. Well perfused. LABS: Reviewed all labs with low HDL. EKG: Normal sinus rhythm EGD: Reviewed FINDINGS: Squamocolumnar junction 38 cm from the incisors. Diaphragmatic hiatus at 38 cm. Hill grade 2 lower esophageal valve. LA grade A erosive esophagitis. No active duodenitis. Gastric ulcer at antrum, superficial, chronic and shallow of 4 mm Chronic gastritis with recent bleed Final Pathologic Diagnosis GASTRIC ANTRUM, BIOPSY: Reactive gastropathy. ASSESSMENT: 1. Morbid obesity due to excess calories 2. Body mass index of 56.4, initial now 49.5 3. Chronic pain syndrome 4. Gastroesophageal reflux disease 5. Hypertensive heart disease 6. Iron deficiency anemia 7. Depressive disorder 8. Anxiety 9. Seizure disorder 10. Obstructive sleep apnea 11. Heart murmur 12. Gastric ulcer 13. Osteoarthritis bilateral knees 14. Panic disoder PLAN: 1. She is looking into the sleeve gastrectomy. She will complete her supervised weight loss per insurance requirements. 2. She has an exercise portion of her Elixr for which both a food and exercise journal is required. 3. Recommend follow up after completion of her weight loss. Objective - Vital Signs Vital signs: Vital Signs Temp 98.0 F 11/13/18 11:37 Pulse 76 11/13/18 11:37 Resp BP 120/66 11/13/18 11:37 Pulse Ox Intake & Output 11/12/18 11/13/18 11/13/18 18:59 06:59 18:59 Weight 132.903 kg
== END | disposition home or self-care (01) ==
LOC: BARWHC3 10:49
PROVIDERS: ATTEND Surgery Plastic and Reconstructive Surgery
DX: E66.01 Morbid (severe) obesity due to excess calories (principal); G89.4 Chronic pain syndrome; K21.9 Gastro-esophageal reflux disease without esophagitis; I11.9 Hypertensive heart disease without heart failure; D50.9 Iron deficiency anemia, unspecified; F32.9 Major depressive disorder, single episode, unspecified; F41.9 Anxiety disorder, unspecified; G40.909 Epilepsy, unspecified, not intractable, without status epilepticus; G47.33 Obstructive sleep apnea (adult) (pediatric); R01.1 Cardiac murmur, unspecified; K25.9 Gastric ulcer, unspecified as acute or chronic, without hemorrhage or perforation; M17.0 Bilateral primary osteoarthritis of knee; F41.0 Panic disorder [episodic paroxysmal anxiety]; Z68.42 Body mass index [BMI] 45.0-49.9, adult; Z87.891 Personal history of nicotine dependence; Z90.49 Acquired absence of other specified parts of digestive tract; Z79.899 Other long term (current) drug therapy; Z88.1 Allergy status to other antibiotic agents; Z88.2 Allergy status to sulfonamides; Z88.5 Allergy status to narcotic agent; Z88.8 Allergy status to other drugs, medicaments and biological substances
CPT/HCPCS: 99211

== ENCOUNTER → 2019-01-23 | Outpatient (CLI) | payer OTHER ==
--- NOTE | 2019-01-23 14:16 | SFUN ---
SLEEP CENTER FOLLOW UP NOTE DATE OF SERVICE: 01/23/2019 A 48-year-old lady who has been followed in the Sleep Center for treatment of obstructive sleep apnea-hypopnea syndrome. Patient continued to use her CPAP equipment every night for the whole night without significant problems. No snoring with the machine. [place] Sleepiness Scale is 5, which is normal. I checked her CPAP unit. CPAP pressure is 10 cm of water. The patient is using it every night 30/30 nights more than 4 hours. Average usage is 7.06 hours. Leak is 0%. Apnea-hypopnea index only 1.0, which is absolutely normal. MEDICATIONS: Prilosec, Neurontin, Zestril, Topamax, Ranexa, Celexa, Nitrostat, Percocet, Bactroban. PHYSICAL EXAM: Patient in no distress. BP 119/70, HR 69, RR 16, height 5 foot 5 inches, weight 286.2 pounds. Patient lost 26 pounds since previous visit. Body mass index 47.5, temperature 97.5, oxygen saturation at room air 98%. OROPHARYNX: Moderately low position of soft palate. ABDOMEN: Obese. Neck Supple, no JVD. Thyroid is not palpable. LUNGS Clear to percussion and to auscultation. Good air exchange. No wheezing or rhonchi. HEART S1, S2 regular. No murmurs, gallops, or rubs. EXTREMITIES No clubbing or cyanosis. LAP POLISHER Awake, alert, and oriented X3. Cranial nerves 2 to 7 intact. There is no fasciculation or atrophy. noted. No focal deficits observed. IMPRESSION: 1. Obstructive sleep apnea-hypopnea syndrome. Patient demonstrated 100% compliance with treatment, benefitting from treatment. Normal respiration on CPAP, pressure 10 cm of water. 2. Obesity, patient lost 26 pounds since last year. 3. Hypertension. 4. Status post bilateral knee surgery. 5. History of episodes of panic attacks. 6. History of seizures many years ago. PLAN: 1. Patient will continue to use CPAP equipment every night for the whole night. 2. Continue losing weight. 3. Sleep hygiene with regular time in bed for at least 8 hours. 4. No driving if feeling sleepiness. 5. I will maintain all necessary prescriptions for mask, tube, filters or other necessary CPAP supplies. Thank you very much for allowing me to participate in the management of patient. Sincerely, Ace Jenkins MD, PhD, FAASM Diplomat of [place] [employer] [place] [employer] Linen Worker of [facility] [place] MMLINDA / JUAN C: [id number] /
== END ==
LOC: SLEEP 13:15
PROVIDERS: ATTEND Internal Medicine
DX: G47.33 Obstructive sleep apnea (adult) (pediatric) (principal); E66.9 Obesity, unspecified; I10 Essential (primary) hypertension; Z98.890 Other specified postprocedural states; Z86.69 Personal history of other diseases of the nervous system and sense organs; Z99.89 Dependence on other enabling machines and devices; Z68.42 Body mass index [BMI] 45.0-49.9, adult; Z79.899 Other long term (current) drug therapy; Z79.891 Long term (current) use of opiate analgesic

== ENCOUNTER → 2021-09-14 | Outpatient (CLI) | payer OTHER ==
--- NOTE | 2021-09-15 11:01 | MM ---
Reason for exam: screening (asymptomatic). Last mammogram was performed 3 years and 6 months ago. History: Family history of breast cancer in maternal aunt. Physical Findings: A clinical breast exam by your physician is recommended on an annual basis and results should be correlated with mammographic findings. MG Screening Mammo w CAD Bilateral CC and MLO view(s) were taken. Prior study comparison: March 08, 2018, bilateral MG 3d screening mammo w/cad. January 25, 2017, bilateral MG screening mammo w CAD. There are scattered fibroglandular densities. There are benign appearing round calcifications bilaterally. There is no discrete abnormality. ASSESSMENT: Benign, BI-RAD 2 RECOMMENDATION: Routine screening mammogram of both breasts in 1 year.
== END | disposition home or self-care (01) ==
LOC: RADMAMWWP 13:11
PROVIDERS: ATTEND Family Medicine
DX: Z12.31 Encounter for screening mammogram for malignant neoplasm of breast (principal); Z80.3 Family history of malignant neoplasm of breast
CPT/HCPCS: 77067

== ENCOUNTER → 2021-11-09 | Outpatient (CLI) | payer OTHER ==
--- NOTE | 2021-11-09 14:14 | SFUN ---
SLEEP CENTER FOLLOW UP NOTE DATE OF SERVICE: 11/09/2021 This 51-year-old lady has been followed in Sleep Center for treatment of obstructive sleep apnea-hypopnea syndrome. I saw this patient about 2-1/2 years ago. She continued to use her CPAP equipment but indicated that her humidifier and her machine did not work. [place] Sleepiness Scale today is 4. I checked her CPAP unit. The CPAP unit is old. The cover of the humidifier is partially broken. Usage is 30/30 nights. Average 9 hours. Leak is 0%. Apnea-hypopnea index is 0.8, which is absolutely normal. CPAP pressure is 10 cm of water. MEDICATIONS: 1. Citalopram 40 mg once a day. 2. Lisinopril 10 mg once a day. 3. Metoprolol 25 mg twice a day. 4. Topiramate 50 mg twice a day. PHYSICAL EXAMINATION: GENERAL: Pleasant patient in no distress. VITAL SIGNS: BP 111/75, HR 84, RR 16, height 5 feet 5 inches, weight 331.2. Body mass index 55, height 5 feet 5 inches. The patient's weight has significantly increased; her weight previously was 286 pounds. Temperature 97.0, oxygen saturation at room air 96%. HEENT: PERRLA, EOMI, evaluation of oropharynx showed tongue protrudes midline. Moderately low position of soft palate. NECK: Supple, no JVD. Thyroid is not palpable. LUNGS: Clear to percussion and to auscultation. Good air exchange. No wheezing or rhonchi. HEART: S1, S2 regular. No murmurs, gallops, or rubs. ABDOMEN: Obese. EXTREMITIES: No clubbing or cyanosis. CARE TEAM COORDINATOR SCHEDULER: Awake, alert, and oriented X3. Cranial nerves 2 to 7 intact. There is no fasciculation or atrophy. noted. No focal deficits observed. IMPRESSION: 1. Obstructive sleep apnea-hypopnea syndrome. Patient demonstrated 100% compliance with treatment. Normal aspiration on CPAP. Her CPAP unit is old. Parts of the heated humidifier are broken. 2. Obesity. Present BMI 55. 3. Hypertension. 4. Status post bilateral knee surgery. 5. History of episodes of panic attacks. 6. History of seizures many years ago. PLAN: 1. Prescription to replace CPAP unit. Patient will be treated with AutoPAP, range of pressure 5 to 12. 2. Patient will continue to use PAP equipment every night for the whole night. 3. Sleep hygiene with regular time in bed for at least 7-1/2 to 8 hours. 4. Precautions related to driving. No driving if feeling sleepiness. 5. I will maintain all necessary prescription for PAP supplies including mask, tube, filters. 6. Watching weight. 7. Follow-up visit in 6 months or earlier if patient has any problems. Thank you very much for allowing me to participate in the management of your patient. Sincerely, Ace Jenkins MD, PhD, FAASM Diplomat of [place] [employer] Sleep Medicine Board of [place] [employer] Cyber Special Agent of [facility] [place] MMODL / IJN: [id number] /
== END ==
LOC: SLEEP 13:16
PROVIDERS: ATTEND Internal Medicine
DX: G47.33 Obstructive sleep apnea (adult) (pediatric) (principal); E66.9 Obesity, unspecified; I10 Essential (primary) hypertension; F41.0 Panic disorder [episodic paroxysmal anxiety]; Z68.43 Body mass index [BMI] 50.0-59.9, adult; Z87.898 Personal history of other specified conditions; Z98.890 Other specified postprocedural states; Z79.899 Other long term (current) drug therapy; Z91.018 Allergy to other foods; Z88.1 Allergy status to other antibiotic agents; Z88.2 Allergy status to sulfonamides; Z88.5 Allergy status to narcotic agent

== ENCOUNTER → 2022-01-25 | Outpatient (CLI) | payer OTHER ==
--- NOTE | 2022-01-25 19:30 | SFUN ---
SLEEP CENTER FOLLOW UP NOTE DATE OF SERVICE: 01/25/2022 This 51-year-old lady has been followed in Sleep Center for treatment of obstructive sleep apnea-hypopnea syndrome. The patient's CPAP unit was replaced. Today is her first visit after she started to use her new CPAP equipment. She likes her machine and is using it every night. She does not have any significant problems with the machine. [place] Sleepiness Scale is 4, which is normal. I checked her CPAP unit. Usage is 97% of nights for more than 4 hours, average 8 hours 56 minutes, which is great compliance. Range of the pressure is 5 to 12, average pressure 10.9. Leak is 11.3 L/minute, which is in normal range. Apnea-hypopnea index is only 0.5, which is perfect. MEDICATIONS: 1. Citalopram 40 mg once a day. 2. Lisinopril 10 mg once a day. 3. Metoprolol 25 mg twice a day. 4. Topiramate mg twice a day. PHYSICAL EXAMINATION: GENERAL: Pleasant patient in no distress. VITAL SIGNS: BP 147/82, HR 92, RR 18, weight 333, temperature 97.7, oxygen saturation at room air 96%. HEENT: PERRLA, EOMI, evaluation of oropharynx showed tongue protrudes midline. Moderately low position of soft palate. NECK: Supple, no JVD. Thyroid is not palpable. LUNGS: Clear to percussion and to auscultation. Good air exchange. No wheezing or rhonchi. HEART: S1, S2 regular. No murmurs, gallops, or rubs. ABDOMEN: Obese. EXTREMITIES: No clubbing or cyanosis. VOLUNTEER SPECIALIST: Awake, alert, and oriented X3. Cranial nerves 2 to 7 intact. There is no fasciculation or atrophy. noted. No focal deficits observed. IMPRESSION: 1. Obstructive sleep apnea-hypopnea syndrome. Patient demonstrated great compliance with treatment. Normal respiration on CPAP. 2. Hypertension. 3. Obesity. 4. Status post bilateral knee surgery. 5. History of episodes of panic attacks. 6. History of seizures many years ago. PLAN: 1. Patient will continue to use PAP equipment every night for the whole night. 2. Sleep hygiene with regular time in bed for at least 7-1/2 to 8 hours. 3. Precautions related to driving. No driving if feeling sleepiness. 4. I will maintain all necessary prescription for PAP supplies including mask, tube, filters. 5. Watching weight. 6. Follow-up visit in 6 months or earlier if patient has any problems. Thank you very much for allowing me to participate in the management of your patient. Sincerely, Ace Jenkins MD, PhD, FAASM Diplomat of [place] [employer] Sleep Medicine Board of [place] [employer] Medicine Lease Buyer of [facility] [place] MMODL / STEPHANIEN: [id number] /
== END ==
LOC: SLEEP 14:18
PROVIDERS: ATTEND Internal Medicine
DX: G47.33 Obstructive sleep apnea (adult) (pediatric) (principal); I10 Essential (primary) hypertension; E66.9 Obesity, unspecified; Z98.890 Other specified postprocedural states; F41.0 Panic disorder [episodic paroxysmal anxiety]; G40.909 Epilepsy, unspecified, not intractable, without status epilepticus; Z99.89 Dependence on other enabling machines and devices; Z91.048 Other nonmedicinal substance allergy status; Z88.2 Allergy status to sulfonamides; Z88.5 Allergy status to narcotic agent; Z91.018 Allergy to other foods; Z88.6 Allergy status to analgesic agent; Z88.8 Allergy status to other drugs, medicaments and biological substances

== ENCOUNTER → 2023-01-15 | Outpatient (CLI) | payer OTHER ==
--- NOTE | 2023-01-16 15:26 | MM ---
Reason for Exam: Screening (asymptomatic). Last mammogram was performed 1 year(s) and 4 month(s) ago. Patient History: Menarche at age 10. First Full-Term at age 28. Patient has history of breast feeding. Last menstrual period: 12/20/2022 Risk Values: [place] 5 year model risk: 1.3%. NCI Lifetime model risk: 10.3%. Prior Study Comparison: 01/25/2017 Bilateral Screening Mammogram, [facility]. 03/08/2018 Bilateral Screening Mammogram, [facility]. 09/14/2021 Bilateral Screening Mammogram, [facility]. Tissue Density: There are scattered fibroglandular densities. Findings: Analyzed By CAD. Pattern appears symmetrical and stable. No significant interval change is evident. No suspicious groups of microcalcifications, spiculated or lobular masses, architectural distortion or other secondary signs of malignancy are mammographically apparent. Overall Assessment: Benign, BI-RAD 2 Management: Screening Mammogram of both breasts in 1 year. A negative mammogram report should not preclude additional follow up of suspicious palpable abnormalities. Patient should continue monthly self breast exam. A clinical breast exam by your physician is recommended on an annual basis and results should be correlated with mammographic findings. Electronically signed and approved by: Charles Zelaya D.O. Radiologis
== END | disposition home or self-care (01) ==
LOC: RADMAMWWP 14:44
PROVIDERS: ATTEND Family Medicine
DX: Z12.31 Encounter for screening mammogram for malignant neoplasm of breast (principal)
CPT/HCPCS: 77063; 77067

== ENCOUNTER → 2023-01-24 | Outpatient (CLI) | payer OTHER ==
--- NOTE | 2023-01-24 17:10 | P.PN ---
Subjective DATE: 01/24/2023 FOLLOW UP VISIT. Patient with obstructive sleep apnea hypopnea syndrome return to sleep center for follow-up visit. Information from previous visit have been reviewed. Patient is using PAP equipment every night for the whole night, getting PAP supplies in time. The patient does not have significant problems with the mask, PAP unit and humidification. [place] sleepiness scale is 7, which is normal. I checked information from PAP unit. PAP unit pressure 5-12 cm of water, average 11.4 cm H2O. Usage is 97 % for more then 4 hours, average 7.75 hours per night. Leak is 16.3 l/m, which is in acceptable range. Apnea Hypopnea Index is 1.3, which is normal. MEDICATIONS:1. Lisinopril 10 mg once a day 2. Metoprolol 25 mg twice a day 3. Topiramate 50 mg twice a day 4. Citalopram 10 mg once a day During physical exam: GENERAL: A pleasant patient without any distress. VITAL SIGNS: BP 118/79, HR 76, RR 16 , weight 238, temperature 97.8, oxygen saturation at room air 98.3 % . HEENT: PERRLA, EOMI.low position of soft palate, Mallapati 3 . NECK: Supple. No JVD. LUNGS: Clear to percussion and to auscultation. Good air exchange. No wheezing or rhonchi. HEART: S1, S2 regular. ABDOMEN: Soft and nontender. Obese EXTREMITIES: No clubbing or cyanosis. CONSULTING PROJECT DIRECTOR: Awake, alert, and oriented x3. No focal deficit. Impressions: 1. Obstructive sleep apnea-hypopnea syndrome. Patient demonstrated great comp liance with treatment, benefiting from treatment. 2. Obesity, body mass index 56.2, patient increased weight on 5 pounds comparing with previous visit. 3. Hypertension. 4. Status post bilateral knee surgery. 5. History of seizures many years ago. 6. History of panic attacks. Plan: 1. Continue using PAP equipment every night for the whole night. 2. To change air filter at least 1-2 times per month. 3. PAP unit should stay lower then position of the head. 4. Advised patient to remove all remaining water from humidifier canister daily and make it dry after each usage. Refill canister with fresh distilled water before each usage. 5. Sleep hygiene with regular time in bed for at least 8 hours. 6. Precautions related to driving. No driving if feel any sleepiness. 7. I will maintain prescription for PAP supplies including mask, tube, filters. 8. Follow up visit in 6 months or earlier if patient has any problems. 9. Watching and losing weight. Thank you very much for allowing me to participate in the management of your patient. Ace Jenkins MD, PhD, FAASM. Diplomat of [place] [employer] Sleep Medicine, Sleep Medicine Board by [place] [employer] Checkout Operator of [facility] [place]
== END ==
LOC: SLEEP 13:07
PROVIDERS: ATTEND Internal Medicine
DX: G47.33 Obstructive sleep apnea (adult) (pediatric) (principal); E66.9 Obesity, unspecified; Z68.43 Body mass index [BMI] 50.0-59.9, adult; I11.0 Hypertensive heart disease with heart failure; Z96.653 Presence of artificial knee joint, bilateral; Z86.73 Personal history of transient ischemic attack (TIA), and cerebral infarction without residual deficits; Z98.890 Other specified postprocedural states; Z99.89 Dependence on other enabling machines and devices; Z79.899 Other long term (current) drug therapy; Z91.048 Other nonmedicinal substance allergy status; Z88.2 Allergy status to sulfonamides; Z88.5 Allergy status to narcotic agent; Z91.018 Allergy to other foods; Z88.8 Allergy status to other drugs, medicaments and biological substances
CPT/HCPCS: 99212

== ENCOUNTER → 2024-01-23 | Outpatient (CLI) | payer OTHER ==
[2024-01-23 13:37] VITALS: BP 113/75; PULSE 99; RESP 18; TEMP 98.2
--- NOTE | 2024-01-23 13:54 | P.PN ---
Subjective DATE: 01/23/2024 FOLLOW UP VISIT. Patient with obstructive sleep apnea hypopnea syndrome return to sleep center for follow-up visit. Information from previous visit have been reviewed. Patient is using PAP equipment every night for the whole night, getting PAP supplies in time. Heated humidifier sometimes does not work [place] sleepiness scale is 8, which is close to border. I checked information from PAP unit. PAP unit pressure 5-12, average 11.5 cm H2O. Usage is 100% for more then 4 hours, average 8.5 hours per night. Leak is 5.6 l/m, which is in acceptable range. Apnea Hypopnea Index is 1.2, which is normal, but patient recently has episodes of seizures. MEDICATIONS:1. Oxybutynin 2. Ethosuximide 3. Citalopram 4. Lisinopril 5. Metoprolol 6. Topiramate 200 mg twice a day 7. BuSpar 5 mg twice a day During physical exam: GENERAL: A pleasant patient without any distress. VITAL SIGNS: Please see below, weight 335.6 pounds. HEENT: PERRLA, EOMI.low position of soft palate, Mallapati 3 . NECK: Supple. No JVD. LUNGS: Clear to percussion and to auscultation. Good air exchange. No wheezing or rhonchi. HEART: S1, S2 regular. ABDOMEN: Soft and nontender. Obese EXTREMITIES: No clubbing or cyanosis. FASTENER TECHNOLOGIST: Awake, alert, and oriented x3. No focal deficit. Impressions: 1. Obstructive sleep apnea-hypopnea syndrome. Patient demonstrated great compliance with treatment, benefiting from treatment. 2. Epilepsy, multiple seizures episodes. 3. Obesity. 4. Hypertension. 5. Status post bilateral knee surgeries. 6. History of panic attacks. Plan: 1. Continue using PAP equipment every night for the whole night. 2. Repeat CPAP titration. There is a concern about possibly oxygen desaturation during the sleep which could be a trigger factor for developing of seizures. 3. PAP unit should stay lower then position of the head. 4. Advised patient to remove all remaining water from humidifier canister daily and make it dry after each usage. Refill canister with fresh distilled water before each usage. 5. Sleep hygiene with regular time in bed for at least 8 hours. 6. Precautions related to driving. No driving if feel any sleepiness. 7. I will maintain prescription for PAP supplies including mask, tube, filters. 8. Following plan after reading CPAP titration test. 9. Watching and losing weight. 10. Prescription to fix or replace CPAP unit if necessary because of the heated humidifier problems. Thank you very much for allowing me to participate in the management of your patient. Ace Jenkins MD, PhD, FAASM. Diplomat of [place] Board of Sleep Medicine, Sleep Medicine Board by [place] Board of Internal Medicine Highway Engineer of [facility] [place] Objective - Vital Signs Vital signs: Vital Signs Temp 98.2 F 01/23/24 13:13 Pulse 99 01/23/24 13:13 Resp 18 01/23/24 13:13 BP 113/75 01/23/24 13:13 Pulse Ox 97 01/23/24 13:13 FiO2 Intake & Output 01/22/24 01/23/24 01/23/24 18:59 06:59 18:59 Weight 152.124 kg
== END ==
LOC: 3 N SLEEP 13:00
PROVIDERS: ATTEND Internal Medicine
DX: G47.33 Obstructive sleep apnea (adult) (pediatric) (principal); G40.909 Epilepsy, unspecified, not intractable, without status epilepticus; E66.9 Obesity, unspecified; I10 Essential (primary) hypertension; F43.10 Post-traumatic stress disorder, unspecified; Z96.653 Presence of artificial knee joint, bilateral; Z99.89 Dependence on other enabling machines and devices; Z91.048 Other nonmedicinal substance allergy status; Z88.2 Allergy status to sulfonamides; Z88.8 Allergy status to other drugs, medicaments and biological substances; Z91.018 Allergy to other foods; Z88.1 Allergy status to other antibiotic agents; Z79.899 Other long term (current) drug therapy
CPT/HCPCS: 99212

== ENCOUNTER 2024-04-02 19:44 | Outpatient (CLI) | payer OTHER ==
--- NOTE | 2024-04-03 17:14 | P.PCN ---
Description of Procedure: CLINICAL: Titration with positive air pressure has been done for correction of respiratory abnormalities during sleep. DESCRIPTION OF PROCEDURE: The standard montage for clinical polysomnography included the electroencephalogram, the electrocardiogram, the mentalis surface electromyography and Lead II cardiography. The respiratory battery consisted of measurements of nasal /buccal air flow, pressure transducer measurements from the nose, thoracic and /or abdominal effort and intercostal surface electromyography. Video monitoring has been done to check for any parasomnia events. Nocturnal oxyhemoglobin saturations were obtained by finger oximetry. Step-maher titration with positive airway pressure was utilized to control respiratory events. Raw data of sleep recording has been reviewed and is adequate. RESULTS: Sleep efficiency was in normal range 87.8%. Latency to sleep onset was normal 19.0 minutes.]. Sleep architecture showed stage N1 was normal 5.9%, Delta sleep was short 3.0%, REM sleep was short 14.0%. Heart rate was minimum 71 BPM, maximum 79 BPM, average 75 BPM. EMG showed 63.2 periodic limb movements per hour with 1.0 micriarousals per hour. PAP titration have been done with CPAP up to the pressure 11 cm H2O. The best results were at the pressure 11 cm H2O. Apnea hypopnea index reduced to 6.4. IMPRESSION: 1. Obstructive sleep apnea hypopnea syndrome mostly on controle with PAP treatment. 2. Significant periodic limb movements have been documented. Please see other impressions from consultation. PLAN: 1. The patient will have treatment with positive air pressure equipment with the level of pressure AutoPAP 6-15 cm H2O and should use it every night for the whole night. 2. Watching and losing weight. 3. Sleep hygiene with regular time in bed for at least 8 hours. 4. No driving if feeling any sleepiness. 5. I will see the patient for follow up visit to explain the results of the test, recommendations, check compliance with treatment and make any necessary adjustment related to mask fitting, pressure and humidification. 6. Please check iron profile including ferritin level. Low level of iron may increase risk for periodic limb movements Thank you very much for allowing me to participate in the management of your patient. Sincerely, Ace Jenkins MD, PhD, FAASM Diplomat of [employer] Sleep Medicine [employer] of [employer] [facility] [place] cc: Darlene Davis DO
== END 2024-04-03 06:00 | disposition home or self-care (01) ==
LOC: 3 N SLEEP 19:44
PROVIDERS: ATTEND Internal Medicine
DX: G47.33 Obstructive sleep apnea (adult) (pediatric) (principal); G47.61 Periodic limb movement disorder; I10 Essential (primary) hypertension; G40.909 Epilepsy, unspecified, not intractable, without status epilepticus; Z91.048 Other nonmedicinal substance allergy status; Z88.8 Allergy status to other drugs, medicaments and biological substances; Z88.5 Allergy status to narcotic agent; Z91.018 Allergy to other foods; Z88.2 Allergy status to sulfonamides; Z79.899 Other long term (current) drug therapy
CPT/HCPCS: 95811

== ENCOUNTER → 2024-05-15 | Outpatient (CLI) | payer OTHER ==
--- NOTE | 2024-05-18 11:58 | MM ---
Reason for Exam: Screening (asymptomatic). Last mammogram was performed 1 year(s) and 4 month(s) ago. Patient History: Menarche at age 10. First Full-Term at age 28. Postmenopausal. Patient has history of breast feeding. Risk Values: Eulalia 5 year model risk: 1.4%. NCI Lifetime model risk: 10.1%. Prior Study Comparison: 03/08/2018 Bilateral Screening Mammogram, [facility]. 09/14/2021 Bilateral Screening Mammogram, [facility]. 01/15/2023 Bilateral MG 3D screening mammo w/cad, [facility]. Tissue Density: The breasts are almost entirely fatty. Findings: Analyzed By CAD. Right breast: There is no suspicious group of microcalcifications or new suspicious mass. Left breast: There is no suspicious group of microcalcifications or new suspicious mass. Overall Assessment: Negative, BI-RAD 1 Management: Screening Mammogram of both breasts in [address] [facility] will attempt to contact patient to return for supplemental views and ultrasound if indicated. Patient should continue monthly self-breast exams. A clinical breast exam by your physician is recommended on an annual basis. This exam should not preclude additional follow-up of suspicious palpable abnormalities. Note on Eulalia scores and lifetime risk: 1. A Eulalia score greater than 3% is considered moderate risk. If this is the case, consider specialist referral to assess eligibility for a risk reducing agent. 2. If overall lifetime risk for the development of breast cancer is 20% or higher, the patient may qualify for future screening with alternating mammogram and breast MRI. Electronically signed and approved by: Stanford Graf DO
== END | disposition home or self-care (01) ==
LOC: RADMAMWWP 10:30
PROVIDERS: ATTEND Family Medicine
DX: Z12.31 Encounter for screening mammogram for malignant neoplasm of breast
CPT/HCPCS: 77063; 77067